=== PATIENT | female | born 1945 | race Caucasian/White ===

== ENCOUNTER → 2019-11-17 11:10 | Outpatient (CLI) | payer MEDICARE, SELFPAY ==
--- NOTE | ~2019-11-17 | US_ITS ---
EXAMINATION: US thyroid DATE: 11/17/2019 11:38 INDICATION: Neck swelling TECHNIQUE: Multiple ultrasound images of the thyroid were obtained. COMPARISON: None. FINDINGS: The right thyroid lobe measures 3.8 x 0.8 x 1.2 cm. The left thyroid lobe measures 3.4 x 1.1 x 0.8 c m. Thyroid isthmus measures 2 mm in thickness. No discrete nodules identified. There is normal echote xture, echogenicity and vascular flow throughout the thyroid gland. IMPRESSION: 1. Normal thyroid. Reviewed, dictated and finalized at location A. IMPRESSION: 1. Normal thyroid.
== END ==
PROVIDERS: PCP Nurse Practitioner Family; Visit Provider Nurse Practitioner Family
DX: R22.1 Localized swelling, mass and lump, neck (principal)
CPT/HCPCS: 76536

== ENCOUNTER → 2020-01-19 13:56 | Outpatient (CLI) | payer MEDICARE, SELFPAY ==
--- NOTE | ~2020-01-19 | MM_ITS ---
EXAMINATION: MM diagnostic tasia BI w bryanna HISTORY: Severe left breast pain, left axillary pain TECHNIQUE: ML, MLO and cc 3-D tomosynthesis images of both breasts were performed and synthetic 2-D i mages were generated. CAD analysis was submitted and interpreted. COMPARISON: 05/27/2016, 10/11/2014bilateral digital screening mammogram examinations BREAST PARENCHYMAL COMPOSITION: There are scattered areas of fibroglandular density. FINDINGS: No suspicious mass or architectural distortion, malignant calcification, skin thickening or retraction or significant new or developing density is detected. Occasional benign calcifications. IMPRESSION: 1. No mammographic evidence of malignancy 2. Routine mammographic screening is recommended BI-RADS Category 1: Negative Reviewed, dictated and finalized at location A.
== END ==
PROVIDERS: PCP Nurse Practitioner Family; Visit Provider Nurse Practitioner Family
DX: N64.4 Mastodynia (principal)
CPT/HCPCS: 77062; 77066; G0279

== ENCOUNTER → 2020-08-01 14:13 | Outpatient (CLI) | payer MEDICARE, SELFPAY ==
--- NOTE | ~2020-08-01 | US_ITS ---
EXAMINATION: US soft tissue head and neck DATE: 08/01/2020 14:37 INDICATION: Localized enlarged lymph nodes of the left neck. TECHNIQUE: Multiple grayscale and Doppler ultrasound images of the neck were obtained. COMPARISON: None FINDINGS: There are normal lymph nodes in the bilateral neck in the patient's areas of concern. IMPRESSION: 1. No abnormal mass or lymphadenopathy in the patient's areas of concern. Reviewed, dictated and finalized at location A.
--- NOTE | ~2020-08-01 | XR_ITS ---
EXAMINATION: XR chest 2V DATE: 08/01/2020 14:48 INDICATION: Dyspnea on exertion. TECHNIQUE: frontal and lateral views of the chest were obtained. COMPARISON: Chest radiograph dated 01/09/2013 FINDINGS: The lungs remain clear with no focal airspace opacities, pulmonary edema, pleural effusion or pneumot horax. The cardiomediastinal silhouette is normal. Mild thoracic kyphosis with mild to moderate spond ylosis. IMPRESSION: 1. No acute cardiopulmonary disease. Reviewed, dictated and finalized at location A.
== END ==
PROVIDERS: PCP Nurse Practitioner Family; Visit Provider Nurse Practitioner Family
DX: R59.0 Localized enlarged lymph nodes (principal); R06.09 Other forms of dyspnea
CPT/HCPCS: 71046; 76536

== ENCOUNTER 2020-11-13 13:22 | Inpatient (IN) | payer MEDICARE, SELFPAY ==
[2020-11-13] VITALS (12 sets, daily range): BP systolic 152–191; BP diastolic 56–86; PULSE 69–83; RESP 9–28; TEMP 36.3–36.9; O2SAT 93–100; BMI 31.4
--- NOTE | ~2020-11-13 | US_ITS ---
EXAMINATION: US biopsy lymph node DATE: 11/14/2020 14:49 INDICATION: Widespread lymphadenopathy including enlarged left axillary lymph nodes TECHNIQUE: The procedure including the risks and benefits was discussed with the patient. Risks discu ssed included bleeding and infection. The patient understood the risks and agreed to proceed. The sk in overlying the left axilla was prepped and draped in usual sterile fashion. Anesthetic was adminis tered with 1% lidocaine subcutaneously. A 14 gauge core biopsy needle was advanced under continuous ultrasound observation to the lesion of interest. 5 core biopsy specimens were obtained, 3 placed in RPMI media and 2 in formalin. The needle was removed and the entry site was cleaned and dressed. P ost procedure ultrasound demonstrated no hemorrhage. FINDINGS: Ultrasound images demonstrate multiple enlarged hypoechoic lymph nodes at the left axilla w ith the 3 largest at the site of biopsy measuring 1.3, 1.4 and 1.6 cm in maximal short axis diameters . Subsequent images demonstrate biopsy needle advanced into 2 of these lymph nodes IMPRESSION: 1. Successful Ultrasound-guided biopsy of enlarged left axillary lymph nodes. Reviewed, dictated and finalized at location A.
--- NOTE | ~2020-11-13 | CT_ITS ---
EXAMINATION: CTA chest PE abdomen pel DATE: 11/13/2020 16:29 INDICATION: Shortness of breath. Abdominal pain. TECHNIQUE: Computed tomography angiography (CTA) of the chest was performed with 100 mL Omnipaque-350 intravenous contrast timed to evaluate the pulmonary arteries. Coronal maximum intensity projection 3D-reconstructions were created by the technologist. Computed tomography (CT) of the abdomen and pelv is was performed with intravenous contrast. Automated exposure control and iterative reconstruction t echnique were employed. The dose-length product was 1746.57 mGy-cm. COMPARISON: None. FINDINGS: CTA chest: The lungs demonstrate mild atelectasis. There is a 3 mm nodule at right major fissure, lik enrique benign. No pleural effusion. There is left atrial enlargement of the heart. No pericardial effusi on. There are coronary artery calcifications. There is no pulmonary embolus. There is left supraclavi cular, left subpectoral, and bilateral axillary lymphadenopathy. For example, a left axillary node me asures 2.1 x 2.0 cm. There is thoracic kyphosis and midthoracic severe spondylosis. CT abdomen and pelvis: The liver demonstrates surface nodularity, consistent with cirrhosis. There is a 2.6 cm cyst in the liver. There is moderate splenomegaly measuring 15.1 cm. There is a paraumbilic al portacaval shunt. The gallbladder is absent. There is a 2.5 cm cystic lesion in the uncinate proce ss of the pancreas. The adrenal glands and kidneys are normal. Pelvic floor relaxation is noted. Ther e is diverticulosis of the colon without evidence of diverticulitis. There are no dilated loops of yovanny wel. The appendix is absent. There is gastrohepatic, gastrosplenic, periportal, periceliac, aortocava l, left para-aortic, left common iliac, bilateral external iliac, and left inguinal lymphadenopathy. For example, a left inguinal node measures 3.0 x 1.5 cm. There is no free intraperitoneal fluid. Ther e are changes of posterior fusion procedure from L4 to S1. There is mild lumbar spondylosis. IMPRESSION: 1. No pulmonary embolus. 2. Lymphadenopathy in the chest, abdomen, and pelvis suspicious for lymphoma. Ultrasound-guided core needle biopsy of a left axillary lymph node is recommended. 3. Cirrhosis of the liver with portal venous hypertension. Moderate splenomegaly. Reviewed, dictated and finalized at location B. IMPRESSION: 1. No pulmonary embolus. 2. Lymphadenopathy in the chest, abdomen, and pelvis suspicious for lymphoma. U ltrasound-guided core needle biopsy of a left axillary lymph node is recommende d. 3. Cirrhosis of the liver with portal venous hypertension. Moderate splenomegal y.
--- NOTE | ~2020-11-13 | XR_ITS ---
EXAMINATION: XR chest 2V DATE: 11/13/2020 15:09 INDICATION: Diarrhea. TECHNIQUE: Frontal and lateral views of the chest were obtained. COMPARISON: Chest 2 views 08/01/2020 FINDINGS: The chest demonstrates clear lungs without pneumonia, pleural effusion, or pneumothorax. Th e heart size is normal. IMPRESSION: 1. No acute cardiopulmonary disease. Reviewed, dictated and finalized at location B.
[2020-11-13 14:03] LABS: Hematocrit 39.1 % (37.0-47.0); Hemoglobin 12.6 g/dL (12.0-15.0); Mean Corpuscular HGB Conc 32.2 g/dl (32-36); Mean Corpuscular Hemoglobin 26.5 pg (26-34); Mean Corpuscular Volume 82.1 fl (80-100); Mean Platelet Volume 10.8 fl (7.4-10.4); Platelet Count Result 93 k/mm3 (150-375); Red Blood Count 4.76 M/mm3 (4.2-5.4); White Blood Count 14.5 K/mm3 (4.5-10.0)
[2020-11-13 14:21] LABS: Alanine Aminotransferase 31 U/L (4-35); Albumin Level 4.4 g/dL (3.5-5.1); Alkaline Phosphatase 184 U/L (38-126); Anion Gap 15 mmol/L (8-16); Aspartate Amino Transferase 92 U/L (14-36); Blood Urea Nitrogen 26 mg/dL (7-17); Calcium 8.6 mg/dL (8.4-10.2); Carbon Dioxide 19 mmol/L (22-30); Chloride 108 mmol/L (98-107); Estimated CRCL calculation 36 ml/min; Estimated Glomerular Filt Rate 40; Glucose 104 mg/dL (65-110); Lipase 193 U/L (23-300); Potassium 3.1 mmol/L (3.4-5.0); Sodium 142 mmol/L (137-145)
[2020-11-13 14:43] LABS: Band Neutrophils Percent 2 % (0-6); Lymphocytes Absolute Manual 3.19 K/mm3 (1.1-4.5); Monocytes Percent Manual 40 % (3-9); Neutrophils Absolute Manual 5.51 K/mm3 (1.7-7.2); Neutrophils Percent Manual 36 % (46-73); Total Cells Counted 100
[2020-11-13 14:44] LABS: Anisocytosis 2+ (NORMAL)
--- NOTE | 2020-11-13 14:54 | ECG_ITS ---
Measurements Intervals [place] Rate: 71 P: -70 PA: 144 QRS: -27 QRSD: 101 T: 148 QT: 424 QTc: 462 Interpretive Statements ECTOPIC ATRIAL RHYTHM LEFT VENTRICULAR HYPERTROPHY AND ST-T CHANGE EXTENSIVE ANTERIOR INFARCT, AGE INDETERMINATE BASELINE ARTIFACT- I, II, III, AVR, AVL, AVF ABNORMAL ECG Electronically Signed On 11-13-2020 15:53:04 CDT by John Gaviria D.O.
--- NOTE | 2020-11-13 14:57 | ED.GENADULT ---
HPI - General Adult General Chief complaint: Nausea/Vomiting/Diarrhea Stated complaint: n/v, freq urination Time Seen by Provider: 11/13/20 14:38 Source: patient Mode of arrival: ambulatory Limitations: no limitations History of Present Illness HPI narrative: This is a 75 year old female who presents for evaluation of fatigue and diarrhea. Patient states she has had chronic diarrhea for years but it has been worse over the past 2-3 weeks. She states normally she has diarrhea 4 times ago but now she is having diarrhea every 10 to 15 minutes. She also reports decreased appetite and nausea. She states she is not eating or drinking because it is making her gag, but she denies vomiting. She has intermittent bilateral abdominal pain. She was evaluated by her PCP 2 weeks ago with blood but she has been unable to see . She was told she had elevated wbc and she has been referred to hematology. She finally came to ER today because she is no weak and short of breath with activity. She denies chest pain, fever. She denies antibiotics in past months. Related Data Home Medications Medication Instructions Recorded Confirmed levothyroxine 11/13/20 losartan 11/13/20 metformin mg 11/13/20 metoprolol succinate PO 11/13/20 Allergies Allergy/AdvReac Type Severity Reaction Status Date / Time Sulfa (Sulfonamide Allergy Mild Other Verified 11/13/20 15:20 Antibiotics) codeine AdvReac Mild Nausea Verified 11/13/20 15:20 Review of Systems Review of Systems: All systems reviewed & are unremarkable except as noted in HPI and below Constitutional: Constitutional: Denies chills, Reports fatigue and Denies fever(s) Cardiovascular: Cardiovascular: Denies chest pain Respiratory: Respiratory: Denies cough and Reports dyspnea Gastrointestinal: Gastrointestinal: Reports abdominal pain, Reports diarrhea and Reports nausea Genitourinary: Genitourinary: Reports nocturia Musculoskeletal: Musculoskeletal: Reports myalgias PMFSH Past Medical History Medical History (Updated 11/13/20 @ 17:04 by Carina Mayfield MD) Hypertension Hypothyroidism Surgical History Surgical History (Updated 11/13/20 @ 15:00 by Carina Mayfield MD) Hx of appendectomy Hx of cholecystectomy Social History Social History (Updated 11/13/20 @ 15:00 by Carina Mayfield MD) Smoking status: Never smoker Alcohol intake: never Substance use: never Exam Const: General: no acute distress, alert and ill appearing Orientation/consciousness: patient oriented x3 Eyes: Pupils: Equal, round and reactive pupils present EOM: EOMs intact bilaterally Neck: Neck: lymphadenopathy (left anterior and posterior cervical) Resp: Effort & Inspection: normal respiratory effort and no retractions Auscultation: clear to auscultation bilaterally Cardio: Rate: regular rate Rhythm: regular rhythm Heart sounds: no murmurs GI: GI Palp: Yes Soft to palpation, Yes Tenderness to palpation present (GI) (upper abdomen) and No Guarding due to palpation present (GI) Auscultation: normal bowel sounds Skin: General skin exam: normal color Rashes: no rashes Neuro: General: patient oriented x3, moves all extremities and CN's II-XI intact bilaterally Extrem: General: normal to inspection Psych: Mental Status: mental status grossly normal Affect: normal affect Course Reevaluation(s) Reevaluation #1: I discussed with patient plan to admit and I reviewed labs and possible lymphoma. She now states she has had lymphadenopathy to left axilla for 1 year. Date: 11/13/20 Time: 17:02 Consultations Consultation #1: I discussed case with Dr. King and he accepts to hospitalist service for dehydration, acute kidney injury and evaluation of possible lymphoma. Date: 11/13/20 Time: 17:01 Vital Signs Vital signs: Vital Signs Temperature 97.4 F L 11/13/20 13:29 Pulse Rate 83 11/13/20 13:29 Respiratory Rate 20 11/13/20 13:29 Blood Pressure 172/83 H 0
[2020-11-13] MEDS: ONDANSETRON INJ 4 MG/2 ML VIAL IV PUSH (15:23)
[2020-11-13] MEDS: SODIUM CHLORIDE 0.9% IV 1,000 ML 999 ML IV CONT ×2 (15:23→16:49)
[2020-11-13 15:35] LABS: Magnesium 1.4 mg/dL (1.6-2.3)
[2020-11-13 15:36] LABS: Lactic Acid Reflex 2.9 mmol/L (0.7-2.1)
[2020-11-13 15:48] LABS: NT Pro B Type Natriuretic Pept 1100 pg/mL (5-100); Troponin I < 0.012 ng/mL (0.000-0.034)
[2020-11-13] MEDS: MAGNESIUM SULF 1 GM/D5W 100 ML 1 GM/100 ML BAG IVPB (15:51)
[2020-11-13 15:56] LABS: INR 1.1; Prothrombin Time 13.9 Seconds (11.1-14.7)
[2020-11-13 15:57] LABS: Partial Thromboplastin Time 29.9 SECONDS (22.3-36.8)
[2020-11-13 15:59] LABS: D Dimer 1.71 ug/mL (<0.48)
--- NOTE | 2020-11-13 16:16 | PC.NURSE ---
Pt to CT.
[2020-11-13 17:15] LABS: Add Urine Microscopic? YES; Appearance Urine Cloudy (Clear); Bacteria Urine Trace /hpf; Bilirubin Urine Negative (Negative); Color Urine Yellow (Yellow); Glucose Urine UA Negative (Negative); Hyaline Casts Urine 20-29 /lpf; Ketones Urine Trace mg/dL (Negative); Leukocyte Esterase Ur 3+ LEU/UL (Negative); Mucus Urine Rare /lpf; Nitrate Urine Negative (Negative); Protein Urine 1+ mg/dL (Negative); Specific Grav Ur 1.019 (1.001-1.035); Squamous Epithelial Cell Urine Occasional /hpf (Few); Urobilinogen Urine Negative mg/dL (<2.0); WBC Urine 16-20 /hpf
[2020-11-13] MEDS: POTASSIUM CHLORIDE 20 MEQ TABLET 40 MEQ PO (17:23)
[2020-11-13 17:40] LABS: Blood Urine Negative (Negative)
[2020-11-13 18:22] LABS: Reflex Lactic Acid Yes or No Add Lactic
--- NOTE | 2020-11-13 19:40 | ADMGEN ---
This patient, Freida Romo, was admitted to Medical Room 341-01. Patient/family oriented to hospital policies and general routines including ID bracelet, bed and alarms, visiting hours, pain management, procedures, bathroom and other care routines, personal items, smoking policy, room service/diet, and visiting hours. Information on how to activate the Rapid Response Team has been discussed. Patient/Family are encouraged to report perceived risks to care and to ask questions if they do not understand what they are told or what they should do.
[2020-11-13] MEDS: LACTATED RINGERS 1,000 ML 125 ML IV CONT (20:12)
--- NOTE | 2020-11-13 20:40 | PM.IMHP ---
H&P: HPI History of Present Illness Date/Time: 11/13/20 20:40 Chief Complaint: weakness diarrhea Narrative: This is a 75 year old female who presents for evaluation of fatigue and worsening diarrhea. Patient states she has had chronic diarrhea for years with about 4-5 episodes every day but it has been worse over the past 2-3 weeks. this increased to almost 8-10 times in a day. She does not get as much each time though no blood noticed. She has noticed decreased appetite and some nausea however no vomiting she has not been eating well since past 3 weeks now. She has also lost about 20-30 lb since past 3 weeks. She does not report any abdominal pain per se but reports because of diarrhea or belly is sore. He has not had any fever chills or night sweats. She also denies any shortness of breath or chest pain or any cough. She denies use of any antibiotics in the past month or so. She had evaluation for diarrhea with colonoscopy in the past report of which is not available but was reported to be negative. Review of Systems Review of Systems: - CONSTITUTIONAL: Reports weight loss, denies fever and chills. - HEENT: Denies changes in vision and hearing - RESPIRATORY: Denies SOB and cough. - CV: Denies palpitations and CP. - GI: Denies abdominal pain, nausea, vomiting and reports diarrhea. reports loss of appetite - : Denies dysuria and urinary frequency. - MSK: reports generalized pain, myalgia and joint pain. - SKIN: Denies rash and pruritus. - NEUROLOGICAL: Denies headache and syncope. - PSYCHIATRIC: Denies recent changes in mood. Denies anxiety and depression. All systems reviewed & are unremarkable except as noted in HPI and below Constitutional: Constitutional: Reports fatigue and Reports weakness Neurologic: Reports weakness Endocrine: Endocrine: Reports fatigue PMFSH Past Medical History Medical History (Updated 11/13/20 @ 23:17 by Brendan Watts MD) Hypertension Hypothyroidism Surgical History Surgical History (Updated 11/13/20 @ 15:00 by Carina Mayfield MD) Hx of appendectomy Hx of cholecystectomy Social History Social History (Updated 11/13/20 @ 15:00 by Carina Mayfield MD) Smoking status: Never smoker Alcohol intake: never Substance use: never Substance use type: does not use Spiritual care concerns: No Meds Home Medications and Allergies Home Medications Medication Instructions Recorded Confirmed Type levothyroxine 100 mcg PO DAILY 11/13/20 11/13/20 History losartan 100 mg PO DAILY 11/13/20 11/13/20 History metformin 500 mg PO DAILY 11/13/20 11/13/20 History metoprolol succinate [Toprol XL] 100 mg PO DAILY 11/13/20 11/13/20 History Allergies Allergy/AdvReac Type Severity Reaction Status Date / Time Sulfa (Sulfonamide Allergy Mild Other Verified 11/13/20 19:43 Antibiotics) codeine AdvReac Mild Nausea Verified 11/13/20 19:43 Vital Signs Vital Signs - 24 hr 11/13/20 13:29 11/13/20 15:36 11/13/20 16:02 Temperature 97.4 F L Pulse Rate 83 71 69 Respiratory Rate 20 9 L 25 H Blood Pressure 172/83 H 179/69 H 174/56 H Pulse Oximetry 96 11/13/20 16:38 11/13/20 16:40 11/13/20 16:42 Temperature Pulse Rate 73 75 73 Respiratory Rate 28 H 23 H Blood Pressure 163/84 H 163/84 H 175/73 H Pulse Oximetry 11/13/20 16:45 11/13/20 16:48 11/13/20 17:04 Temperature Pulse Rate 77 76 Respiratory Rate 21 H 15 Blood Pressure 158/81 H 158/81 H 191/86 H Pulse Oximetry 94 11/13/20 18:30 11/13/20 19:35 Temperature 98.3 F 98.5 F Pulse Rate 72 76 Respiratory Rate 16 20 Blood Pressure 152/78 H 156/72 H Pulse Oximetry 100 100 Exam Narrative: GENERAL: The patient is well developed, not in acute distress HEENT: Nonicteric sclerae, PERRLA, EOMI. Oropharynx clear. dry mucous membranes. Conjunctivae appear well perfused. CHEST: Chest wall is nontender. HEART: Regular rate and rhythm without murmur, rubs, or ga
[2020-11-13 21:14] LABS: Lactic Acid 2.1 mmol/L (0.7-2.1)
[2020-11-13] MEDS: ACETAMINOPHEN 500 MG TABLET PO (22:59)
[2020-11-14] MEDS: LACTATED RINGERS 1,000 ML 125 ML IV CONT (04:39)
[2020-11-14] MEDS: ACETAMINOPHEN 500 MG TABLET PO (04:39)
[2020-11-14 06:00] VITALS: BP 170/62; PULSE 74; RESP 18; TEMP 36.3; O2SAT 94
[2020-11-14 06:23] LABS: Hematocrit 34.6 % (37.0-47.0); Hemoglobin 10.4 g/dL (12.0-15.0); Mean Corpuscular HGB Conc 30.1 g/dl (32-36); Mean Corpuscular Hemoglobin 26.1 pg (26-34); Mean Corpuscular Volume 86.7 fl (80-100); Mean Platelet Volume 10.4 fl (7.4-10.4); Platelet Count Result 76 k/mm3 (150-375); Red Blood Count 3.99 M/mm3 (4.2-5.4); Red Cell Distribution Width 16.4 % (11.5-14.5); White Blood Count 12.7 K/mm3 (4.5-10.0)
[2020-11-14 06:42] LABS: Alanine Aminotransferase 23 U/L (4-35); Albumin Level 3.3 g/dL (3.5-5.1); Alkaline Phosphatase 126 U/L (38-126); Anion Gap 12 mmol/L (8-16); Aspartate Amino Transferase 67 U/L (14-36); Bilirubin,Total 0.7 mg/dL (0.2-1.3); Blood Urea Nitrogen 15 mg/dL (7-17); Calcium 7.5 mg/dL (8.4-10.2); Carbon Dioxide 19 mmol/L (22-30); Chloride 110 mmol/L (98-107); Estimated CRCL calculation 65 ml/min; Estimated Glomerular Filt Rate > 60; Glucose 77 mg/dL (65-110); Magnesium 1.3 mg/dL (1.6-2.3); Potassium 3.4 mmol/L (3.4-5.0); Sodium 141 mmol/L (137-145)
[2020-11-14] MEDS: LEVOTHYROXINE SODIUM 100 MCG TABLET PO (06:51)
--- NOTE | 2020-11-14 07:13 | PM.IMPN ---
Progress Note: A&P Assessment and Plan (1) Dehydration: Code(s): E86.0 - Dehydration Status: Acute (2) Lymphadenopathy, abdominal: Code(s): R59.0 - Localized enlarged lymph nodes Status: Acute (3) Acute kidney injury: Code(s): N17.9 - Acute kidney failure, unspecified Status: Acute (4) Hypokalemia: Code(s): E87.6 - Hypokalemia Status: Acute (5) Hypomagnesemia: Code(s): E83.42 - Hypomagnesemia Status: Acute (6) Diarrhea: Code(s): R19.7 - Diarrhea, unspecified Status: Acute (7) Urinary tract infection: Code(s): N39.0 - Urinary tract infection, site not specified Status: Acute (8) Thrombocytopenia: Code(s): D69.6 - Thrombocytopenia, unspecified Status: Acute (9) Cirrhosis of liver: Code(s): K74.60 - Unspecified cirrhosis of liver Status: Acute (10) Portal hypertension: Code(s): K76.6 - Portal hypertension Status: Acute (11) Splenomegaly: Code(s): R16.1 - Splenomegaly, not elsewhere classified Status: Acute (12) Elevated liver enzymes: Code(s): R74.8 - Abnormal levels of other serum enzymes Status: Acute Additional Plan # Dehydration with ongoing poor p.o. intake noted weight loss IV hydration, will consult dietitian # Diarrhea acute on chronic no formal diagnosis or diarrhea found in the past. Will get stool studies initiated to rule out infectious. CT abdomen with no bowel abnormality noted. Could be IBS related. Check WBC in stool # widespread lymphadenopathy new diagnosis possible lymphoma. Discussed biopsy with patient agreeable will get left axillary lymph node biopsy by Radiology in morning. Dr. esquivel the been consulted as well will await his recommendations # Cirrhosis of liver with portal hypertension this is a new diagnosis consult GI # Cystic lesion of the pancreas differential include cirrhosis, intraductal papillary mucinous neoplasm, mucinous cystic neoplasm, neuroendocrine tumor: need to follow up with an MRI abdomen outpatient basis if not done this admission # Leukocytosis monitor likely due to underlying UTI # Thrombocytopenia unclear etiology might be related to cirrhosis continue to monitor # UTI placed on ceftriaxone follow urine culture # Elevated D-dimer CTA negative for PE # Hypokalemia replace and monitor # HALLIE IV hydration # Elevated liver enzymes lactic acidosis #Hypomagnesemia has been replaced monitor # Hypothyroidism continue medication # Hypertension hold losartan blood pressure not optimally likely reactive continue hydration hydralazine p.r.n. # DVT prophylaxis SCDs #Code status DNR Subjective Date/time seen: 11/14/20 07:13 Review of Systems Review of Systems: All systems reviewed & are unremarkable except as noted in HPI and below Exam Narrative: GENERAL: The patient is well developed, not in acute distress HEENT: Nonicteric sclerae, PERRLA, EOMI. Oropharynx clear. dry mucous membranes. Conjunctivae appear well perfused. CHEST: Chest wall is nontender. HEART: Regular rate and rhythm without murmur, rubs, or gallops LUNGS: Clear to auscultation bilaterally. no respiratory distress ABDOMEN: Soft, positive bowel sounds, non-tender, no organomegaly. SKIN: No rash, no excessive bruising, petechiae, or purpura. NEUROLOGIC: Cranial nerves II-XII intact, alert and oriented x 3, no gross motor deficits generally weak looking EXTREMITIES: no edema, cyanosis or clubbing Objective Data Vital Signs Vital Signs: Vital Signs - 24 hr 11/13/20 13:29 11/13/20 15:36 11/13/20 16:02 Temperature 36.3 C L Pulse Rate 83 71 69 Respiratory Rate 20 9 L 25 H Blood Pressure 172/83 H 179/69 H 174/56 H Pulse Oximetry 96 11/13/20 16:38 11/13/20 16:40 11/13/20 16:42 Temperature Pulse Rate 73 75 73 Respiratory Rate 28 H 23 H Blood Pressure 163/84 H 163/84 H 175/73 H Pulse Oximetry 11/13/20 16:45 11/13/20 16:48 11/13/20 17:
[2020-11-14 07:30] LABS: Anisocytosis 1+ (NORMAL); Band Neutrophils Percent 4 % (0-6); Lymphocytes Absolute Manual 1.77 K/mm3 (1.1-4.5); Monocytes Absolute Manual 5.08 K/mm3 (0.1-0.90); Monocytes Percent Manual 40 % (3-9); Neutrophils Absolute Manual 5.84 K/mm3 (1.7-7.2); Neutrophils Percent Manual 42 % (46-73); Platelet Estimate Decreased (Adequate); Total Cells Counted 100
[2020-11-14 07:31] LABS: Hypochromasia 1+ (NORMAL)
--- NOTE | 2020-11-14 08:12 | PDONCCN ---
HPI - Date of Consult Date/Time: 11/14/20 08:12 Requesting Physician: Fidelia King MD Primary Care Provider: Suzie Barba, [employer] [facility] OPERATOR-BC - Consult Narrative Reason for consult: Generalized lymphadenopathy Narrative: Freida Romo is a 75 year old female with history of thyroid cancer status post thyroidectomy he is 7 years ago as well as history of diabetes hypertension and hypothyroidism came into the hospital with 3-4 weeks history of tiredness and fatigue and exhaustion. She has lost 15-20 lb weight in last 4-6 weeks duration. She has been complaining of fever chills and night sweats but the fever remains low grade. She was also complaining of diarrhea. She has noticed loss of appetite along with some nausea for last 3-4 days duration. According to the patient she has lump in the left axilla for several years but recently has been getting bigger. CT scan showed lymphadenopathy in the chest abdomen and pelvis suspicious for lymphoma as well as cirrhosis of the liver with moderate splenomegaly. There was a cystic lesion of the pancreas. Review of Systems - Review of Systems All systems reviewed & are unremarkable except as noted in HPI and bel - Neurologic Reports weakness [facility] Medical History: Medical History (Last Updated 11/13/20 @ 15:00 by Carina Mayfield MD) Hypertension Hypothyroidism Surgical History: Surgical History (Last Updated 11/13/20 @ 15:00 by Carina Mayfield MD) Hx of appendectomy Hx of cholecystectomy - Social History Social History: Social History (Last Updated 11/13/20 @ 15:00 by Carina Mayfield MD) Alcohol Use: Alcohol intake: never Substance Use: Substance use: never Substance use type: does not use Others: Spiritual care concerns: No Smoking Status: Smoking status: Never smoker Meds Home Medications Medication Instructions Recorded Confirmed Type levothyroxine 100 mcg PO DAILY 11/13/20 11/13/20 History losartan 100 mg PO DAILY 11/13/20 11/13/20 History metformin 500 mg PO DAILY 11/13/20 11/13/20 History metoprolol succinate [Toprol XL] 100 mg PO DAILY 11/13/20 11/13/20 History Allergies Allergy/AdvReac Type Severity Reaction Status Date / Time Sulfa (Sulfonamide Allergy Mild Other Verified 11/13/20 19:43 Antibiotics) codeine AdvReac Mild Nausea Verified 11/13/20 19:43 Results - Labs CBC & Chem 7: 11/14/20 06:12 11/14/20 06:12 Labs: Short CBC 11/13/20 11/14/20 Range/Units 13:57 06:12 WBC 14.5 H 12.7 H (4.5-10.0) K/mm3 Hgb 12.6 10.4 L (12.0-15.0) g/dL Hct 39.1 34.6 L (37.0-47.0) % Plt Count 93 L 76 L (150-375) k/mm3 BMP 11/13/20 11/14/20 13:56 06:12 Sodium 142 141 Potassium 3.1 L 3.4 Chloride 108 H 110 H Carbon Dioxide 19 L 19 L BUN 26 H 15 D Creatinine 1.30 H 0.70 Glucose 104 77 Calcium 8.6 7.5 L Cardiac Enzymes 11/13/20 Range/Units 15:17 Troponin I < 0.012 (0.000-0.034) ng/mL Liver Function 11/13/20 11/14/20 Range/Units 13:56 06:12 Total Bilirubin 1.0 0.7 (0.2-1.3) mg/dL AST 92 H 67 H (14-36) U/L ALT 31 23 (4-35) U/L Alkaline Phosphatase 184 H 126 (38-126) U/L Albumin 4.4 3.3 L (3.5-5.1) g/dL Urine 11/13/20 Range/Units 16:47 Urine Color Yellow (Yellow) Urine Appearance Cloudy H (Clear) Urine pH 5.0 (5.0-9.0) Ur Specific [place] 1.019 (1.001-1.035) Urine Protein 1+ H (Negative) mg/dL Urine Glucose (UA) Negative (Negative) mg/dL Assessment and Plan - Additional Plan Generalized lymphadenopathy. Suspicious for lymphoma. Patient is a pleasant 75-year-old female with history of thyroid cancer status post thyroidectomy at along with history of diabetes and hypertension. She presented with 3-4 week history of generalized weakness and exhaustion along with night sweats fever chills and 15-20 lb weight lost in 4-6 weeks duration. She denies an
[2020-11-14 08:14] VITALS: PULSE 93
[2020-11-14] MEDS: METOPROLOL SUCCINATE EXT REL 100 MG TABCR PO (08:14)
[2020-11-14 08:18] LABS: Glucose Point of Care 83 mg/dl (65-105)
[2020-11-14 09:00] LABS: Iron 56 ug/dL (37-170)
[2020-11-14 09:09] LABS: Percent Iron Saturation 19 % (20-50)
[2020-11-14] MEDS: MAGNESIUM SULF 4 GM/WATER100ML 4 GM/100 ML BAG IVPB (09:52)
[2020-11-14] MEDS: LOSARTAN POTASSIUM 100 MG TABLET PO (09:54)
[2020-11-14 11:39] LABS: Glucose Point of Care 94 mg/dl (65-105)
[2020-11-14 12:46] VITALS: BMI 31.4
--- NOTE | 2020-11-14 13:38 | WPDGICN ---
Assessment and Plan Assessment and plan (1) Cirrhosis of liver: Code(s): K74.60 - Unspecified cirrhosis of liver Status: Acute Assessment and Plan: her history gives no indication of etiology for her cirrhosis. As I mentioned above she was told that pain killers that she took 40 years ago may have caused liver damage at that time she had been found to have some elevation of liver enzymes. Ferritin has been obtained. I will check hepatitis serology, RYAN, ceruloplasmin etc.. I told her that we can continue investigation as an outpatient (2) Splenomegaly: Code(s): R16.1 - Splenomegaly, not elsewhere classified Status: Acute Assessment and Plan: this could be partly due to her lymphoproliferative disease but suggests that she has portal hypertension and is consistent with other findings of cirrhosis (3) Portal hypertension: Code(s): K76.6 - Portal hypertension Status: Acute Assessment and Plan: we will need to perform EGD to rule out or in esophageal varices. (4) Lymphadenopathy, abdominal: Code(s): R59.0 - Localized enlarged lymph nodes Status: Acute Assessment and Plan: She is having a lymph node biopsy this afternoon. She will continue investigation for this as an outpatient with Oncology (5) Abnormal CT scan, gastrointestinal tract: Code(s): R93.3 - Abnormal findings on diagnostic imaging of other parts of digestive tract Status: Acute Assessment and Plan: we discussed the findings of the pancreas with a cystic lesion which could be malignant, a little more likely to be benign. Although repeat MRI or CT in 6 months was suggested. I think that we need to look at this more acutely. She would benefit from endoscopic ultrasound. We will 1st perform an MRCP in a few weeks to compare it to the CT scan Additional Plan she should make appointment to see me for EGD in 3 or 4 weeks GI Consult Note Consult date/time: 11/14/20 13:38 HPI: Freida Romo is a 75 year old female Who presented to the emergency room with complaints of poor appetite, weight loss of 25 lb in the past month, nighttime sweats. States she simply has no appetite. She has no nausea or vomiting. She has loose stools but has had this for many years. This began after her cholecystectomy about 50 years ago. She also takes metformin for diabetes. She has not seen her primary care physician recently. She states that she was told that she had liver damage in which was attributed than to taking pain medication for her back problems. She eventually had a spinal fusion. She denies drinking alcohol regularly. She has no family history of liver disease. She does not have any autoimmune illnesses. She has never had hepatitis or yellow jaundice. Likewise, she has never had problems with her pancreas although now on the CT scan she is found to have a 2.5 cm cystic lesion in the uncinate process. The CT scan does not mention varices but she does have evidence of a paraumbilical portal caval shunt and has splenomegaly as well as a nodular liver consistent with cirrhosis. Also, she has generalized abdominal lymphadenopathy involving the periaortic areas the gastrohepatic, gastrosplenic, external iliac and other areas. She is scheduled to have a lymph node biopsy this afternoon. She is where the fact that she probably has lymphoma and she has been seen by Dr. West. Review of Systems Review of Systems: All systems reviewed & are unremarkable except as noted in HPI and below PMFSH Past Medical History Medical History Hypertension Hypothyroidism Surgical History Surgical History Hx of appendectomy Hx of cholecystectomy Social History Social History Smoking status: Never smoker Alcohol intake: never
--- NOTE | 2020-11-14 15:42 | PM.DS ---
DS: Admitting Diagnosis Admitting Diagnosis Generalized weakness Dehydration Generalized lymphadenopathy Acute kidney injury Hypokalemia Hypo magnesemia Diarrhea Thrombocytopenia Cirrhosis of liver with portal hypertension DS: Discharge Diagnosis Discharge Diagnosis (1) Dehydration: Code(s): E86.0 - Dehydration Status: Acute (2) Lymphadenopathy, abdominal: Code(s): R59.0 - Localized enlarged lymph nodes Status: Acute (3) Acute kidney injury: Code(s): N17.9 - Acute kidney failure, unspecified Status: Acute (4) Hypokalemia: Code(s): E87.6 - Hypokalemia Status: Acute (5) Hypomagnesemia: Code(s): E83.42 - Hypomagnesemia Status: Acute (6) Diarrhea: Code(s): R19.7 - Diarrhea, unspecified Status: Acute (7) Urinary tract infection: Code(s): N39.0 - Urinary tract infection, site not specified Status: Acute (8) Thrombocytopenia: Code(s): D69.6 - Thrombocytopenia, unspecified Status: Acute (9) Cirrhosis of liver: Code(s): K74.60 - Unspecified cirrhosis of liver Status: Acute (10) Portal hypertension: Code(s): K76.6 - Portal hypertension Status: Acute (11) Splenomegaly: Code(s): R16.1 - Splenomegaly, not elsewhere classified Status: Acute (12) Elevated liver enzymes: Code(s): R74.8 - Abnormal levels of other serum enzymes Status: Acute Assessment and Plan: # Dehydration with ongoing poor p.o. intake noted weight loss IV hydration, dietitian was consulted. # Diarrhea acute on chronic no formal diagnosis or diarrhea found in the past. Stool studies were ordered but has not been sent yet. CT abdomen with no bowel abnormality noted. Could be IBS related. # widespread lymphadenopathy new diagnosis possible lymphoma. Discussed biopsy with patient agreeable. Ultrasound-guided left axillary lymph node biopsy was obtained today. She tolerated the procedure very well. It will be followed up by Hematology/Oncology Service. She does have contact detail to see plant electrical engineer., Dr. Chris West. # Cirrhosis of liver with portal hypertension this is a new diagnosis. Gastroenterology service has been consulted. Workup with ferritin, hepatitis serology, RYAN and ceruloplasmin has been sent. He will be followed up by Gastroenterology as an outpatient and will likely need an upper GI endoscopy. # Cystic lesion of the pancreas differential include cirrhosis, intraductal papillary mucinous neoplasm, mucinous cystic neoplasm, neuroendocrine tumor: need to follow up with an MRI abdomen outpatient basis. He will be followed up by Hematology/Oncology as an outpatient and arrange for MRI of the abdomen/MRCP if indicated. # Leukocytosis minimal leukocytosis. Does not have any significant symptoms. Urine culture has been negative so far. Will discharge her on 3 days of ciprofloxacin. # Thrombocytopenia unclear etiology might be related to cirrhosis continue to monitor # UTI ciprofloxacin as an outpatient. Follow urine culture. # Elevated D-dimer CTA negative for PE # Hypokalemia replace and monitor # HALLIE IV hydration. creatinine back to baseline. # Elevated liver enzymes lactic acidosis #Hypomagnesemia has been replaced monitor # Hypothyroidism continue medication # Hypertension resume losartan as an outpatient. # DVT prophylaxis SCDs #Code status DNR She is adamant to go home today. She was told to stay in the hospital overnight for monitoring of her medical issues including electrolyte abnormality, follow-up of the urine culture to optimize her antibiotic regimen but she is refusing and wants to go home today. DS: Summary Hospital Course Hospital Course: As above Time Spent with Patient Time attestation: Total time spent providing and/or coordinating discharge services: > 35 minutes Exam Narrative: General awake and alert not in acute distress HEENT no discharge Neck supp
[2020-11-14 16:15] LABS: Hepatitis B Surface Antigen Negative (Negative)
[2020-11-14 16:21] LABS: HAV RESULT Negative (Negative); Hepatitis B Core IgM Result Negative (Negative)
[2020-11-14 16:33] LABS: Hepatitis C Virus Antibody Negative (Negative)
[2020-11-14 20:58] LABS: Lactate Dehydrogenase 4232 U/L (313-618)
[2020-11-17 15:02] LABS: Ceruloplasmin 39 mg/dL (18-53)
== END 2020-11-14 16:40 | disposition home or self-care (01) | DRG 824 ==
LOC: ANHED 17:04 → ANH3MED 18:37
PROVIDERS: Emergency Medicine; Internal Medicine; Internal Medicine Gastroenterology; Internal Medicine Hematology & Oncology; Admitting Provider Family Medicine; Emergency Provider General Practice; PCP Nurse Practitioner Family; Visit Provider Internal Medicine Critical Care Medicine
DX: C84.44 Peripheral T-cell lymphoma, not elsewhere classified, lymph nodes of axilla and upper limb (principal); N39.0 Urinary tract infection, site not specified; K76.6 Portal hypertension; C85.94 Non-Hodgkin lymphoma, unspecified, lymph nodes of axilla and upper limb; R59.0 Localized enlarged lymph nodes; R06.02 Shortness of breath; E86.0 Dehydration; E87.6 Hypokalemia; E83.42 Hypomagnesemia; K74.60 Unspecified cirrhosis of liver; R16.1 Splenomegaly, not elsewhere classified; R74.8 Abnormal levels of other serum enzymes; E03.9 Hypothyroidism, unspecified; Z66 Do not resuscitate; D69.59 Other secondary thrombocytopenia; K58.0 Irritable bowel syndrome with diarrhea; I10 Essential (primary) hypertension; Z90.49 Acquired absence of other specified parts of digestive tract; Z85.850 Personal history of malignant neoplasm of thyroid; Z98.1 Arthrodesis status
CPT/HCPCS: 36415; 38505; 71046; 71275; 74177; 76942; 80053; 80074; 81001; 81340; 81342; 82390; 82607; 82728; 82746; 82948; 83540; 83550; 83605; 83615; 83690; 83735; 83880; 84443; 84484; 85025; 85380; 85610; 85730; 86038; 87086; 87088; 88184; 88185; 88305; 88321; 88341; 88342; 93005; 96361; 96365; 96366; 96367; 96375; 99285; A9270; G0378; J0696; J2405; J3475; J7030; J7120; Q9967